=== PATIENT | female | born 1955 ===

== ENCOUNTER 2022-02-01 10:28 | Inpatient (IN) | payer OTHER ==
[~2022-02-01] VITALS: Ht 160 cm; Wt 87.1 kg
[2022-02-02] MEDS ORDERED: ZESTRIL10 M1 PO (08:22)
[2022-02-02] MEDS ORDERED: LEVO-T88 MCG PO (08:22)
[2022-02-04] MEDS ORDERED: ATORVASTATIN CA40 MG (10:10)
[2022-02-08] MEDS ORDERED: PERCOCET 5-3251 EACH PO (10:01)
== END 2022-02-08 11:41 | disposition home or self-care (01) | DRG 331 ==
LOC: O/R 02-04 06:30 → SURG 02-04 06:30
PROVIDERS: ADMIT Surgery; ATTEND Surgery
PROC: 0DTE4ZZ Resection of Large Intestine, Percutaneous Endoscopic Approach (ICD-10-PCS; principal; 2022-02-08)
PROC: 07BC4ZZ Excision of Pelvis Lymphatic, Percutaneous Endoscopic Approach (ICD-10-PCS; 2022-02-08)
PROC: 0DJD8ZZ Inspection of Lower Intestinal Tract, Via Natural or Artificial Opening Endoscopic (ICD-10-PCS; 2022-02-08)
DX: C18.6 Malignant neoplasm of descending colon (principal); Z20.822 Contact with and (suspected) exposure to COVID-19